=== PATIENT | female | born 2000 | race Caucasian/White ===

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

== ENCOUNTER → 2020-05-14 16:11 | Outpatient (CLI) | payer OTHER | END | disposition home or self-care (01) | LOC: LAB 15:48 | DX: Z20.828 Contact with and (suspected) exposure to other viral communicable diseases (principal) ==

== ENCOUNTER → 2020-06-22 08:44 | Outpatient (CLI) | payer OTHER | END | disposition home or self-care (01) | LOC: LAB 06-21 15:01 | DX: Z20.828 Contact with and (suspected) exposure to other viral communicable diseases (principal) ==